=== PATIENT | female | born 1960 | race Caucasian/White ===

== ENCOUNTER → 2016-12-09 | Outpatient (CLI) | payer OTHER ==
[~2016-12-09] VITALS: Ht 175.3 cm; Wt 102.1 kg
[~2016-12-09] MED LIST: ACID CONTROL150 MG PO; ASPIR 8181 M1 PO; ATENOLOL50 MG PO; HYDROCHLOROTHIA25 MG PO; LIPITOR40 MG PO; LOSARTAN POTASS50 MG PO; ZOLOFT50 MG PO; ZYRTEC10 M3 PO
== END | disposition home or self-care (01) ==
LOC: AMB 12-05 09:00
PROC: 0DJD8ZZ Inspection of Lower Intestinal Tract, Via Natural or Artificial Opening Endoscopic (ICD-10-PCS; principal; 2016-12-09)
DX: Z12.11 Encounter for screening for malignant neoplasm of colon (principal); I10 Essential (primary) hypertension; K21.9 Gastro-esophageal reflux disease without esophagitis; Z79.82 Long term (current) use of aspirin; Z91.040 Latex allergy status; Z88.0 Allergy status to penicillin; Z91.018 Allergy to other foods
CPT/HCPCS: 93005; J2250; J3010